=== PATIENT | male | born 1980 | race Caucasian/White ===

== ENCOUNTER 2020-08-12 04:43 | Day surgery (SDC) | payer BC ==
[2020-08-11 16:17] VITALS: BMI 29.7
--- OUTSIDE RECORDS SUMMARY | 2020-08-12 04:47 | XMS ---
:1980 Author Organization [facility] Care Team Providers Name Role Phone LIANNE SOUSA Unavailable Unavailable DANNY ESPINOSA Unavailable Unavailable Holli Obrien Unavailable Unavailable Re-disclosure Warning The records that you are about to access may contain information from federally- assisted alcohol or drug abuse programs. If such information is present, then the following federally mandated warning applies: This information has been disclosed to you from records protected by federal confidentiality rules (42 CFR part 2). The federal rules prohibit you from making any further disclosure of this information unless further disclosure is expressly permitted by the written consent of the person to whom it pertains or as otherwise permitted by 42 CFR part 2. A general authorization for the release of medical or other information is NOT sufficient for this purpose. The Federal rules restrict any use of the information to criminally investigate or prosecute any alcohol or drug abuse patient.The records that you are about to access may contain highly sensitive health information, the redisclosure of which is protected by Article 27-F of the [facility] Public Health law. If you continue you may haveaccess to information: Regarding HIV / AIDS; Provided by facilities licensed or operated by the [facility] Office of Mental Health; or Provided by the [facility] Office for People With Developmental Disabilities. If such information is present, then the following [facility] mandated warning applies: This information has been disclosed to you from confidential records which are protected by state law. State law prohibits you from making any further disclosure of this information without the specific written consent of the person to whom it pertains, or as otherwise permitted by law. Any unauthorized further disclosure in violation of state law may result in a fine or long term sentence or both. A general authorization for the release of medical or other information is NOT sufficient authorization for further disclosure. Encounters Encounter Providers Location Date Indications Data Source(s ) Outpatient Attender: CATHOLIC, 01/01/2020 E29.1 [facility] HUMAYUNAdmitter: 11:46:00 AM Health Care CATHOLIC [employer] HUMAYUNReferrer: LIANNE SOUSA E29.1 Outpatient 08/15/2019 09:39:00 AM EDT E29.1 [facility] E29.1 Emergency Attender: Holli 06/04/2019 01:56:00 BACK [place] PM EDT - 06/04/2019 [facility] 03:35:00 PM EDT BACK PAIN AMB.[facility] Patient discharged. Outpatient 09/14/2018 09:52:00 AM EST LOWER GREGORIA K PAIN R/O [facility] HNP LOWER BACK PAIN R/O HNP Insurance Providers Payer name Policy type Policy ID Covered Covered libertarian's Policy P louie / Coverage libertarian ID relationship to [employer] Inf ormation type ribeiro BC OUT OF [id number] S [id number] [facility] CLM# PT CLM# MUTUAL INS CO [id number] CROSS [id number] SP [id number] PPO BLUE CROSS [id number] SP [id number] HMO LM GENERAL CLM# PT CLM# INSURANCE CO [id number] NO FAULT [id number] PT [id number] Problems, Conditions, and Diagnoses Code Display Name Description Problem Type Effective Data Sour ce(s) Dates E29.1 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 Procedure
[2020-08-12] MEDS ORDERED: PROPOFOL 20 ML ONE (09:15)
[2020-08-12] MEDS ORDERED: MIDAZOLAM HCL 2 MG/2 ML SINGLE DOSE VIAL ONE (09:15)
--- NOTE | 2020-08-12 09:32 | HP ---
Satellite [facility] - Chief Complaint Chief Complaint: right knee mass - Past Medical History Allergies/Adverse Reactions: Allergies Allergy/AdvReac Type Severity Reaction Status Date / Time latex AdvReac Unknown Verified 08/12/20 08:31 - Current Medications Current Medications: Home Medications Medication Instructions Recorded Ascorbic Acid [Vitamin C] 1,000 mg PO DAILY 08/11/20 Atorvastatin Ca [Lipitor] 80 mg PO HS 08/11/20 Carisoprodol [Soma] 350 mg PO PRN PRN 08/11/20 Multivitamin 1 each PO DAILY 08/11/20 [place]-3 Fatty Acids/Fish Oil [Fish 1 each PO DAILY 08/11/20 Oil 1,000 mg Capsule] Oxycodone HCl/Acetaminophen 1 each PO PRN 08/11/20 [Percocet 10-325 mg Tablet] Oxycodone HCl/Acetaminophen 1 tab PO Q6H #12 tablet MDD 4 08/12/20 [Percocet 5-325 mg Tablet] Satellite Physical Exam - Physical Examination Vital Signs: Vital Signs Period Temp Pulse Resp BP Sys/Hqa Pulse Ox Last 24 Hr 98.0 F-98.0 F 81-81 -20 141-141/-81 98-98 General Appearance: Well Nourished, Well Developed, Alert & Oriented x3, Pallor Lung: Normal air movement Extremities: Other (right knee- +mass, + ttp, nvi) Neurological: Intact, Alert, Oriented Satellite Impression/Plan - Impression/Plan Impression: right knee mass Operative Procedure: right knee mass excision Date to be Performed: 08/12/20
[2020-08-12] MEDS ORDERED: LIDOCAINE 1%/EPI 1:100000 (50 ML MULTI DOSE VIAL) ONE (09:46)
[2020-08-12] MEDS ORDERED: ceFAZolin 2 GRAM PREMIX BAG IVPB ONE (10:06)
[2020-08-12] MEDS ORDERED: BUPIVACAINE HCL/PF 0.5% (5 MG/ML) 30 ML VIAL IJ ONE (10:09)
[2020-08-12] MEDS ORDERED: oxyCODONE HCL 5 MG TABLET PO PRN ×2 (10:12)
[2020-08-12] MEDS ORDERED: ONDANSETRON 4 MG/2 ML VIAL IVPUSH PRN (10:12)
[2020-08-12] MEDS ORDERED: LACTATED RINGERS SOLUTION 1,000 ML IV SCH (10:15)
[2020-08-12 11:10] VITALS: PULSE 64
[2020-08-12 11:30] VITALS: TEMP 97.3
--- NOTE | 2020-08-12 12:04 | OP ---
Operative Note - Note: Operative Date: 08/12/20 ([facility]) Pre-Operative Diagnosis: right knee mass Operation: right knee mass excision Post-Operative Diagnosis: Same as Pre-op Surgeon: Flip Koo Anesthesia: General, Local Specimens Removed: mass Estimated Blood Loss (mls): 5
--- NOTE | 2020-08-12 13:00 | OP ---
DATE OF OPERATION: 08/12/2020 PREOPERATIVE DIAGNOSIS: Mass, right knee. POSTOPERATIVE DIAGNOSIS: Mass, right knee. PROCEDURE: Excision, mass, right knee. SURGICAL ATTENDING: Flip Koo MD ANESTHESIA: Local with LMA. CLOSURE: Vicryl 2-0 subcutaneous and 3-0 nylon for skin. ESTIMATED BLOOD LOSS: Negligible. COMPLICATIONS: None. CONDITION: Recovery in stable condition. DESCRIPTION OF OPERATIVE PROCEDURE: Patient taken to the operating room on August 12, 2020. General anesthesia was administered by the anesthesiologist. The right lower extremity was prepped and draped in the usual sterile fashion. The area of the mass on the anterolateral aspect of the knee was infiltrated with 1% Xylocaine with epinephrine. A 3- to 4-cm longitudinal incision over the anterolateral aspect of the knee was incised over the palpable mass. Sharp dissection was carried down to the level of the mass. Blunt dissection was used to come around the well-encapsulated mass. After opening the capsule, the mass popped out of the incision in total by itself with a small stalk. This stalk was debrided back to its base and then completely delivered out of the incision. The incision was irrigated. The subcutaneous was closed with 2-0 Vicryl, and 3-0 nylon was used for the skin. A sterile pressure dressing was applied. Patient awakened from anesthesia and transferred to recovery in stable condition. No complication. Estimated blood loss negligible. David [id number]
[2020-08-12 14:32] VITALS: BP 120/70
--- NOTE | 2020-08-14 17:53 | PATH ---
Surgical Pathology Report Patient Name: MEGAN URBINA Med. Rec. #: [id number] /Age/Gender: 1980 (Age: 40) / M Account: [id number] [facility] Taken: 08/12/2020 Received: 08/12/2020 Reported: 08/14/2020 Physicians: Flip Koo M.D. Specimen(s) Received MASS OF SOFT TISSUE Clinical History Right knee mass Final Diagnosis WELL ENCAPSULATED EXTRA ARTICULAR MASS IN SOFT TISSUE LATERAL KNEE, EXCISION: ENCAPSULATED ADIPOSE TISSUE BY FIBROUS CAPSULE SHOWING FOCAL FAT NECROSIS. NO EVIDENCE OF MALIGNANCY. Electronically Signed Chadwick Diaz M.D. Gross Description Received in formalin labeled "well encapsulated extra articular mass in soft tissue lateral knee," is a 2.5 x 1.5 x 0.6 cm stiles, encapsulated soft tissue mass. Sectioning reveals soft yellow parenchyma. The specimen is bisected and entirely submitted in 2 cassettes. /08/12/2020 [place]/08/12/2020
== END 2020-08-12 12:10 | disposition home or self-care (01) ==
LOC: JASU-SURG 04:43
PROVIDERS: ATTEND Orthopaedic Surgery
PROC: 0KBS0ZZ Excision of Right Lower Leg Muscle, Open Approach (ICD-10-PCS; principal; 2020-08-12 10:00)
DX: D49.2 Neoplasm of unspecified behavior of bone, soft tissue, and skin (principal)
CPT/HCPCS: 88304-TC; 94760